=== PATIENT | male | born 1975 | race Caucasian/White ===

== ENCOUNTER 2016-11-17 21:50 | Emergency (ER) | payer OTHER ==
[~2016-11-17] VITALS: Ht 180.3 cm; Wt 99.8 kg
[2016-11-17 22:02] VITALS: BP 161/116
[2016-11-17] MEDS ORDERED: LORazepam 0.5 MG TAB PO ONE (22:15)
[2016-11-18] MEDS ORDERED: LORazepam 0.5 MG TAB PO ONE (04:00)
== END 2016-11-18 04:13 | disposition home or self-care (01) ==
LOC: ER 21:51
DX: F41.9 Anxiety disorder, unspecified (principal); F32.9 Major depressive disorder, single episode, unspecified; F17.210 Nicotine dependence, cigarettes, uncomplicated; G47.00 Insomnia, unspecified